=== PATIENT | female | born 1985 | race Two or more races ===

== ENCOUNTER 2023-09-03 15:17 | Emergency (ER) | payer OTHER ==
[~2023-09-03] VITALS: Ht 165.1 cm; Wt 70.3 kg
[2023-09-03 18:19] LABS: HEMATOCRIT 36.8 % (36.0-45.00); HEMOGLOBIN 12.2 g/dL (12.0-15.00); MEAN CELL VOLUME 80.1 fL (80.00-100.00); MEAN CORPUSCULAR HEMOGLOBIN 26.6 pg (27.00-32.0); MEAN CORPUSCULAR HGB CONC 33.2 g/dl (32.0-36.0); PLATELET COUNT 262 K/uL (150-450); RED CELL DISTRIBUTION WIDTH 13.4 % (11.5-14.5)
[2023-09-03 18:20] LABS: PH,URINE 6.5 (5.0-8.0); URINE APPEARANCE Cloudy; URINE BILIRRUBIN Negative (NEGATIVE); URINE BLOOD Moderate; URINE COLOR Yellow; URINE GLUCOSE Negative (NEGATIVE); URINE LEUKOCYTE Large; URINE NITRATE Negative; URINE PROTEIN 30 (NEGATIVE); URINE UROBILINOGEN 0.2 E.U./dl
[2023-09-03 18:23] LABS: URINE RBC 227.3 uL (0.0-20.8)
[2023-09-03 18:29] LABS: URINE EPITHELIAL CELLS 0.7 uL (0.0-38.8)
[2023-09-03 18:40] LABS: ANION GAP 9 (10.0-20.0); BLOOD UREA NITROGEN 15 mg/dL (7-18); BUN CREA RATIO 25 (7.0-25.0); CALCIUM 9.3 mg/dL (8.5-10.1); CARBON DIOXIDE 27 mEq/L (21-32); CHLORIDE 106 mmol/L (98-107); CREATININE SERUM 0.61 mg/dL (0.55-1.02); GFR 110.98; GLUCOSE FASTING 97 mg/dL (65-100); OSMOLALITY SERUM 276 MOSM/KG (275-295); POTASSIUM 4.29 mEq/L (3.5-5.1); SODIUM 138 mmol/L (136-145)
[2023-09-03 18:43] LABS: HCG QUANTITATIVE < 1 mUI/mL (1-3)
== END 2023-09-03 20:35 | disposition home or self-care (01) ==
LOC: ER 15:18
PROVIDERS: General Practice
DX: N39.0 Urinary tract infection, site not specified (principal)